=== PATIENT | female | born 1995 | race Caucasian/White ===

== ENCOUNTER 2020-07-06 10:39 | Emergency (ER) | payer OTHER ==
[~2020-07-06 10:39] MED LIST: ACETAMINOPHEN500 M1 PO; ANTI-DIARRHEAL2 M1 PO; BENTYL10 MG PO; COLACE100 MG PO; IBUPROFEN800 MG PO; NAPROXEN500 MG PO; NORCO 5-325 TA1 EACH PO; OXY-IR 5MG5 MG PO; VISTARIL50 MG PO; ZOFRAN8 MG PO
[2020-07-06 12:06] LABS: BASOPHIL 0.5 % (0-2); EOSINOPHIL 2.4 % (0-5); HCT 41.1 % (37.0-47.0); HGB 14.1 g/dl (12.5-16.0); LYMPHOCYTE 32.8 % (15-48); MCH 32.4 pg (25.0-31.0); MCHC 34.3 g/dL (32.0-36.0); MCV 94.5 fL (78.0-100.0); MONOCYTE 7.8 % (0-12); MPV 9.7 fL (6.0-9.5); NEUTROPHIL 56.3 % (41-80); NRBC 0; PLT 263 K/uL (150-400); RBC 4.35 M/uL (4.20-5.40); RDW 12.8 % (11.5-14.0); WBC 8.3 K/uL (4.0-10.5)
[2020-07-06 12:07] LABS: BILIRUBIN NEGATIVE (NEGATIVE); BLOOD 1+ Ery/uL (NEGATIVE); COLOR YELLOW (YELLOW); GLUCOSE (U) NORMAL (NORMAL); LEUKOCYTES NEGATIVE Leu/uL (NEGATIVE); NITRITE NEGATIVE (NEGATIVE); PROTEIN NEGATIVE (NEGATIVE); UROBILINOGEN 0.2 mg/dL (0.2-1.0)
[2020-07-06 12:09] LABS: CLARITY CLOUDY (CLEAR)
[2020-07-06 12:13] LABS: AMORPHOUS URATES CRYSTALS LARGE; BACTERIA TRACE; URINARY RBC RARE; URINARY WBC RARE
[2020-07-06 12:27] LABS: ALBUMIN 3.5 g/dL (3.4-5.0); BILIRUBIN - TOTAL 0.2 mg/dL (0.2-1.0); BUN/CREAT RATIO (CALC) 17.9 RATIO; CREATININE 0.67 mg/dL (0.51-0.95); GLOBULIN (CALCULATION) 3.3 g/dL; POTASSIUM 4.1 mmol/L (3.5-5.1); TOTAL PROTEIN 6.8 g/dL (6.4-8.2)
[2020-07-06] MEDS ORDERED: NAPROXEN500 MG PO (12:32)
== END 2020-07-06 12:48 | disposition home or self-care (01) ==
LOC: FER 10:39
PROVIDERS: Emergency Medicine
DX: O9A.211 Injury, poisoning and certain other consequences of external causes complicating pregnancy, first trimester (principal); S29.012A Strain of muscle and tendon of back wall of thorax, initial encounter; O20.9 Hemorrhage in early pregnancy, unspecified; Z90.49 Acquired absence of other specified parts of digestive tract; X58.XXXA Exposure to other specified factors, initial encounter; Z3A.00 Weeks of gestation of pregnancy not specified
CPT/HCPCS: 36415; 80053; 81001; 82150; 83690; 85025; 99284

== ENCOUNTER 2021-03-28 08:45 | Inpatient (IN) | payer OTHER ==
[~2021-03-28] VITALS: Ht 154.9 cm; Wt 88.5 kg
[2021-03-28 09:17] LABS: BILIRUBIN NEGATIVE (NEGATIVE); BLOOD NEGATIVE Ery/uL (NEGATIVE); CLARITY CLOUDY (CLEAR); COLOR YELLOW (YELLOW); GLUCOSE (U) NORMAL (NORMAL); LEUKOCYTES TRACE Leu/uL (NEGATIVE); NITRITE NEGATIVE (NEGATIVE); PROTEIN NEGATIVE (NEGATIVE); UROBILINOGEN 0.2 mg/dL (0.2-1.0); pH 7.5 (5.0-9.0)
[2021-03-28 09:31] LABS: AMORPHOUS PHOSPHATE CRYSTALS MODERATE; SQUAMOUS EPITHELIAL CELLS RARE
[2021-03-28 16:44] LABS: HCT 36.4 % (37.0-47.0); HGB 12.5 g/dl (12.5-16.0); MCHC 34.3 g/dL (32.0-36.0); MPV 10.1 fL (6.0-9.5); RBC 3.79 M/uL (4.20-5.40); RDW 13.5 % (11.5-14.0); WBC 11.2 K/uL (4.0-10.5)
[2021-03-30 07:04] LABS: HCT 34.9 % (37.0-47.0); HGB 11.7 g/dL (12.5-16.0)
== END 2021-03-30 20:40 | disposition home or self-care (01) | DRG 807 ==
LOC: FOD 08:45 → FOB 08:45 → FOD 17:08 → FOB 17:09
PROVIDERS: ADMIT Obstetrics & Gynecology
PROC: 10E0XZZ Delivery of Products of Conception, External Approach (ICD-10-PCS; principal; 2021-03-29)
DX: O99.02 Anemia complicating childbirth (principal); Z37.0 Single live birth; Z20.822 Contact with and (suspected) exposure to COVID-19; O99.214 Obesity complicating childbirth; O62.3 Precipitate labor; Z3A.38 38 weeks gestation of pregnancy
CPT/HCPCS: 36415; 81001; 84112; 85014; 85018; 86850; 86900; 86901; J2405; J7120; U0002